=== PATIENT | male | born 1990 | race Caucasian/White ===

== ENCOUNTER 2020-01-13 17:49 | Emergency (ER) | payer OTHER ==
[~2020-01-13] VITALS: Ht 185.4 cm; Wt 81.6 kg
[2020-01-13] MEDS ORDERED: hydrOXYzine 25 MG TAB or CAP PO ONE (20:00)
[2020-01-13 20:46] LABS: Alcohol, Urine < 3.0 mg/dL (0-10); Amphetamine Screen, Urine NEGATIVE (NEGATIVE); Barbiturate Scree,Urine NEGATIVE (NEGATIVE); Benzodiazephine Screen, Urine NEGATIVE (NEGATIVE); Cannabinoid Screen, Urine POSITIVE (NEGATIVE); Cocaine Screen, Urine NEGATIVE (NEGATIVE); Opiate Scree,Urine NEGATIVE (NEGATIVE); Phencyclidine Screen, Urine NEGATIVE (NEGATIVE)
[2020-01-13] MEDS ORDERED: ALPRAZolam 0.25 MG TAB PO ONE (21:45)
[2020-01-13 22:16] VITALS: BP 116/78
== END 2020-01-13 23:27 | disposition home or self-care (01) ==
LOC: ER 17:49
DX: F40.8 Other phobic anxiety disorders (principal); F42.8 Other obsessive-compulsive disorder; Z88.2 Allergy status to sulfonamides
CPT/HCPCS: 80307; 93005

== ENCOUNTER 2020-11-03 19:59 | Emergency (ER) | payer OTHER ==
[~2020-11-03] VITALS: Ht 182.9 cm; Wt 90.7 kg
[2020-11-03] MEDS ORDERED: SODIUM CHLORIDE 0.9% 1,000 ML IV ONE (20:30)
[2020-11-03] MEDS ORDERED: MORPHINE SULFATE 4 MG/ML SYR/VIAL IV ONE (20:30)
[2020-11-03 20:56] LABS: Urine Bacteria NONE SEEN /hpf (None Seen); Urine Blood Negative /uL (Negative); Urine Mucus FEW (None Seen); Urine WBC 1 /hpf (0 - 3)
[2020-11-03 21:49] LABS: Basophils # (auto) 0 10 ^3/uL (0-0.2); Basophils % (auto) 0.4 % (0.0-2.0); Eosinophils # (auto) 0.4 10 ^3/uL (0-0.8); Eosinophils % (auto) 3.6 % (0.0-7.0); Hematocrit 45.9 % (41.0-53.0); Hemoglobin 15.4 g/dL (13.5-17.5); Lymphocytes # (auto) 1.5 10 ^3/uL (0.4-5.4); Mean Corpuscular Hemoglobin 30.7 pg (28.0-32.0); Mean Corpuscular Hgb Conc. 33.6 g/dL (32.0-36.0); Mean Corpuscular Volume 91.3 fL (80.0-100.0); Monocytes # (auto) 1.2 10 ^3/uL (0-1.3); Monocytes % (auto) 11.5 % (0.0-12.0); Neutrophils # (auto) 7.1 10 ^3/uL (1.6-8.6); Neutrophils % (auto) 69.5 % (37.0-80.0); Nucleated Red Blood Cells % 0.2 %; Red Blood Cells 5.03 10^6/uL (4.5-5.90); Red Cell Distribution Width 12.8 % (11.8-14.3); White Blood Cell 10.2 10^3/uL (4.4-10.8)
[2020-11-03 22:14] LABS: Potassium 4.7 mmol/L (3.5-5.1)
[2020-11-03 22:17] LABS: Albumin 3.8 g/dL (3.4-5.0); Calcium 9.5 mg/dL (8.5-10.1)
[2020-11-03 22:20] LABS: Bilirubin, Total 0.8 mg/dL (0.2-1.0); Total Protein 8.1 g/dL (6.4-8.2)
[2020-11-03] MEDS ORDERED: ONDANSETRON HCL 4 MG/2 ML VIAL IV ONE (22:30)
[2020-11-03] MEDS ORDERED: IOHEXOL 300 MG/ML 100ML BOTTLE IJ ONE (22:39)
[2020-11-03 23:08] VITALS: BP 135/83
== END 2020-11-04 01:03 | disposition home or self-care (01) ==
LOC: ER 20:03
DX: L08.82 Omphalitis not of newborn (principal); F17.210 Nicotine dependence, cigarettes, uncomplicated; Z88.0 Allergy status to penicillin; Z88.1 Allergy status to other antibiotic agents; Z90.89 Acquired absence of other organs
CPT/HCPCS: 36415; 74176; 80053; 81001; 83690; 85025; 96360; 96361; 99284; J7030